=== PATIENT | female | born 1990 | race Caucasian/White ===

== ENCOUNTER 2018-07-24 23:09 | Emergency (ER) | payer OTHER ==
[~2018-07-24] VITALS: Ht 172.7 cm; Wt 117.9 kg
[2018-07-24 23:20] VITALS: BP 153/70
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
[2018-07-24] MEDS ORDERED: ACETAMINOPHEN 325 MG TABLET. PO ONE (23:45)
[2018-07-25] MEDS ORDERED: ACET1TAB33 PO (00:32)
[2018-07-25] MEDS ORDERED: ONDA4TAB7 PO (00:32)
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
== END 2018-07-25 00:45 | disposition home or self-care (01) ==
LOC: ER 23:09
DX: S09.90XA Unspecified injury of head, initial encounter (principal); Z91.013 Allergy to seafood; Y04.2XXA Assault by strike against or bumped into by another person, initial encounter; Y93.89 Activity, other specified; Y92.89 Other specified places as the place of occurrence of the external cause; Y99.8 Other external cause status
CPT/HCPCS: 70450; 81025; 99284-25